=== PATIENT | male | born 1970 | race Caucasian/White ===

== ENCOUNTER 2018-07-03 15:48 | Emergency (ER) | payer BC ==
[2018-07-03] MEDS ORDERED: Tetan/Diph/Pertus SYR(Tdap)* 0.5 ML SYR(BOOSTRIX) use SYR IM ONE (16:01)
--- NOTE | 2018-07-03 16:05 | ED ---
Laceration/Wound HPI - HPI Summary HPI Summary: Patient is a 47 y/o M presenting to ED with complaints of puncture wound to left hand. He was taking a wire agricultural fence down today and was rolling it up when the fence punctured through his glove and into his hand. He notes some difficulty in removing the fence, stating he had to "twist and wiggle" the fence wiring out of his hand. Bleeding is controlled, he is unsure of last tetanus. Patient notes that he ran his hand under soapy water. He denies smoking , denies PMHx. Patient is right handed. On triage, pain is rated 3/10. Nothing is noted to aggravate/alleviate Sx. Home medications and allergies are reviewed. - History of Current Complaint Stated Complaint: "LT PINKY PUNCTURE WOUND PER PT" Time Seen by Provider: 07/03/18 16:01 Hx Obtained From: Patient Mechanism of Injury: Sharp/Blunt Trauma Onset/Duration: Sudden Onset, Still Present Aggravating: Nothing Alleviating: Nothing Timing: Constant Current Severity: Mild Pain Intensity: 3 Pain Scale Used: 0-10 Numeric - 3/10 Associated Signs & Symptoms: Pain - left hand - Allergy/Home Medications Allergies/Adverse Reactions: Allergies Allergy/AdvReac Type Severity Reaction Status Date / Time No Known Allergies Allergy Verified 07/03/18 16:36 PMH/Surg Hx/FS Hx/Imm Hx Musculoskeletal History: Denies: Hx Rheumatoid Arthritis, Hx Osteoporosis Sensory History: Denies: Hx Legally Blind, Hx Deafness Opthamlomology History: Denies: Hx Legally Blind EENT History: Denies: Hx Deafness Infectious Disease History: No Infectious Disease History: Reports: Traveled Outside the [place] in Last 30 Days - [facility] - Family History Known Family History: Positive: Diabetes - Social History Alcohol Use: None Substance Use Type: Reports: None Smoking Status (MU): Never Smoked Tobacco Review of Systems Negative: Fever - on vitals, temp is 96.6 F Skin: Other - POSITIVE - LEFT HAND PUNCTURE WOUND All Other Systems Reviewed And Are Negative: Yes Physical Exam - Summary Physical Exam Summary: Appearance: well appearing, no pain distress Skin: warm, dry, reflects adequate perfusion; puncture wound at left hypothenar eminence, controlled bleeding Head/face: normal Eyes: EOMI, NELSON ENT: mucous membranes moist Neck: supple, non-tender Respiratory: CTA, breath sounds present Cardiovascular: RRR, pulses symmetrical Abdomen: non-tender, soft Bowel Sounds: present Musculoskeletal: normal, strength/ROM intact Neuro: normal, sensory motor intact, A&Ox3 Triage Information Reviewed: Yes Vital Signs On Initial Exam: Initial Vitals Temp Pulse Resp BP Pulse Ox 96.6 F 86 18 138/89 98 07/03/18 15:51 07/03/18 15:51 07/03/18 15:51 07/03/18 15:51 07/03/18 15:51 Vital Signs Reviewed: Yes Diagnostics - Vital Signs Vital Signs Temp Pulse Resp BP Pulse Ox 07/03/18 15:51 96.6 F 86 18 138/89 98 - Laboratory Lab Statement: Any lab studies that have been ordered have been reviewed, and results considered in the medical decision making process. Laceration Repair Course/Dx - Course Course Of Treatment: Patient with puncture wound to the left hand without retained foreign body. The wound will be left open. It was cleaned extensively with soap and water here. He was placed on Keflex and his tetanus shot was updated. A clean sterile gauze dressing was applied. - Clinical Impression Provider Diagnoses: Puncture wound of left hand Discharge - Sign-Out/Discharge Documenting (check all that apply): Patient Departure - discharge Patient Received Moderate/Deep Sedation with Procedure: No - Discharge Plan Condition: Improved Disposition: HOME Prescriptions: Cephalexin CAP* [Keflex CAP*] 500 mg PO TID #20 cap Patient Education Materials: Puncture Wound (ED) Referrals: Balbir Mckeon MD [Primary Care Provider] - Additional Instructions: Keep area clean and dry. Dress with dry dressing. Clean with soap and water twice daily. Return with increasing redness, pain, redness of the hand, worse or other concerns. Follow up with her primary care doctor or urgent care/ER if worse. - Billing Disposition and Condition Condition: IMPROVED Disposition: Home - Attestation Statements Document Initiated by Vika: Yes Documenting Scribe: SOFIA HOOD Provider For Whom Vika is Documenting (Include Credential): JESUS AVILES MD Scribe Attestation: SOFIA Morejon, scribed for JESUS AVILES MD on 07/03/18 at 1840. Scribe Documentation Reviewed: Yes Provider Attestation: The documentation as recorded by the scribe, SOFIA HOOD accurately reflects the service I personally performed and the decisions made by me, JESUS AVILES MD Status of Scribshanice Document: Viewed
[2018-07-03 16:38] VITALS: BP 130/70
== END 2018-07-03 16:36 | disposition home or self-care (01) ==
LOC: ED 15:48
DX: S61.432A Puncture wound without foreign body of left hand, initial encounter (principal); W26.8XXA Contact with other sharp object(s), not elsewhere classified, initial encounter; Y92.9 Unspecified place or not applicable; Z23 Encounter for immunization
CPT/HCPCS: 90471; 90715; 99282

== ENCOUNTER 2018-12-11 12:17 | Emergency (ER) | payer BC ==
--- NOTE | 2018-12-11 14:50 | ED ---
Bite Injury/Animal - HPI Summary HPI Summary: 48-year-old male presents with abrasion on right arm that noticed today. Unsure when got the abrasion. He states he is concerned that was a bat exposure. He has not seen a bat in his house. States he was outside yesterday moving the leaves. Does not know when the abrasion appeared. No one else in house saw a bat. Tetanus up-to-date. - History of Current Complaint Chief Complaint: EDAnimalBite Stated Complaint: POSS BAT BITE PER PT Time Seen by Provider: 12/11/18 14:07 Pain Intensity: 0 - Allergies/Home Medications Allergies/Adverse Reactions: Allergies Allergy/AdvReac Type Severity Reaction Status Date / Time No Known Allergies Allergy Verified 12/11/18 12:30 Home Medications: Home Medications NK [No Home Medications Reported] 12/11/18 [History Confirmed 12/11/18] PMH/Surg Hx/FS Hx/Imm Hx Endocrine/Hematology History: Denies: Hx Anticoagulant Therapy Respiratory History: Denies: Hx Asthma Musculoskeletal History: Denies: Hx Rheumatoid Arthritis, Hx Osteoporosis Sensory History: Denies: Hx Legally Blind, Hx Deafness Opthamlomology History: Denies: Hx Legally Blind Infectious Disease History: No Infectious Disease History: Denies: Traveled Outside the [place] in Last 30 Days - Family History Known Family History: Positive: Diabetes - Social History Alcohol Use: Daily Alcohol Amount: ~1 drink per day Substance Use Type: Reports: None Smoking Status (MU): Never Smoked Tobacco Review of Systems Negative: Fever Negative: Chest Pain Negative: Shortness Of Breath Positive: Other - abrasion to arm All Other Systems Reviewed And Are Negative: Yes Physical Exam Triage Information Reviewed: Yes Vital Signs On Initial Exam: Initial Vitals Temp Pulse Resp BP Pulse Ox 98.3 F 83 16 143/109 96 12/11/18 12:27 12/11/18 12:27 12/11/18 12:27 12/11/18 12:27 12/11/18 12:27 Vital Signs Reviewed: Yes Appearance: Positive: Well-Appearing Skin: Positive: Warm, Dry, Other - two abrasions on right arm Head/Face: Positive: Normal Head/Face Inspection Eyes: Positive: Normal, Conjunctiva Clear ENT: Positive: Pharynx normal Respiratory/Lung Sounds: Positive: Clear to Auscultation, Breath Sounds Present Cardiovascular: Positive: Normal, RRR Musculoskeletal: Positive: Normal Neurological: Positive: Normal Psychiatric: Positive: Normal Procedures - Sedation Patient Received Moderate/Deep Sedation with Procedure: No Diagnostics - Vital Signs Vital Signs Temp Pulse Resp BP Pulse Ox 12/11/18 12:27 98.3 F 83 16 143/109 96 - Laboratory Lab Statement: Any lab studies that have been ordered have been reviewed, and results considered in the medical decision making process. Bite Injury Course/Dx - Course Course Of Treatment: 48-year-old male presents with abrasion on right arm that noticed today. Unsure when got the abrasion. He states he is concerned that was a bat exposure. He has not seen a bat in his house. States he was outside yesterday moving the leaves. Does not know when the abrasion appeared. No one else in house saw a bat. Tetanus up-to-date. On exam has superficial abrasions on her arm right. called health department and states this is not a bat exposure. Told keep abrasions clean. Patient understands agrees the plan. - Diagnoses Differential Diagnosis/HQI/PQRI: Positive: Rabies Exposure, Other - abrasion, bat exposure Provider Diagnosis: Abrasion Discharge ED - Sign-Out/Discharge Documenting (check all that apply): Patient Departure - Discharge Plan Condition: Good Disposition: HOME Referrals: Balbir Mckeon MD [Primary Care Provider] - Additional Instructions: keep area clean Return to ED if develop any new or worsening symptoms - Billing Disposition and Condition Condition: GOOD Disposition: Home
[2018-12-11 16:01] VITALS: BP 147/100
== END 2018-12-11 15:50 | disposition home or self-care (01) ==
LOC: ED 12:17
DX: S40.811A Abrasion of right upper arm, initial encounter (principal); X58.XXXA Exposure to other specified factors, initial encounter; Y92.9 Unspecified place or not applicable
CPT/HCPCS: 99282